=== PATIENT | male | born 1975 | race Caucasian/White ===

== ENCOUNTER → 2018-09-12 | Emergency (ER) | payer SELFPAY ==
[~2018-09-12] MED LIST: ASPIRIN 81 MG CHEWABLE TABLETS ONE; ASPIRIN 81 MG CHEWABLE TABLETS PO ONE; LORazepam 2 MG/ML SDV VIAL ONE; chlordiazePOXIDE HCL 25 MG CAPSULE ONE; chlordiazePOXIDE HCL 25 MG CAPSULE PO ONE
[2018-09-12 12:52] VITALS: PULSE 78; BMI 23.1
--- NOTE | 2018-09-12 12:54 | PDOC ---
Rapid Medical Evaluation Time Seen by Provider: 09/12/18 12:51 Medical Evaluation: 09/12/18 12:51 The patient is a 42 y/o M with no PMH who presents to the ER for chest tightness for 2 hours. He states it is mostly on the L side. Denies difficulty breathing and shortness of breath. (+) smoking hx, also admits to alcohol use Exam: Lungs CTAB, heart RRR, S1S2 present, no MRG Orders: Labs, EKG, CXR Pt to proceed to the ER for further evaluation Discharge Disposition - Diagnosis Chest tightness - Referrals - Patient Instructions - Post Discharge Activity
--- NOTE | 2018-09-12 13:50 | EKG ---
Test Reason : Blood Pressure : / mmHG Vent. Rate : 080 BPM Atrial Rate : 080 BPM P-R Int : 128 ms QRS Dur : 092 ms QT Int : 386 ms P-R-T Axes : 041 058 057 degrees QTc Int : 445 ms POOR DATA QUALITY, INTERPRETATION MAY BE ADVERSELY AFFECTED NORMAL SINUS RHYTHM SEPTAL INFARCT , AGE UNDETERMINED ABNORMAL ECG NO PREVIOUS ECGS AVAILABLE Confirmed by MD ANGÉLICA, PERNELL ([id number]) on 09/12/2018 1:49:37 PM Referred By: Confirmed By:PERNELL LINDSAY MD
[2018-09-12 15:29] LABS: BASO % 0.6 % (0-2.0); EOS % 2.2 % (0-4.5); HEMATOCRIT 50.8 % (35.4-49); HEMOGLOBIN 17.5 GM/dL (11.7-16.9); LYMPH % 12.9 % (8-40); MCH 32.8 pg (25.7-33.7); MCHC 34.5 g/dl (32.0-35.9); MEAN CELL VOLUME 95.1 fl (80-96); MEAN PLT VOLUME 6.9 fl (7.5-11.1); MONO % 7.3 % (3.8-10.2); PLATELET COUNT 231 K/MM3 (134-434); RBC 5.34 M/mm3 (4.00-5.60); RDW 13.1 % (11.9-15.9); WHITE BLOOD COUNT 9.6 K/mm3 (4.0-10.0)
[2018-09-12 15:40] LABS: URINE APPEARANCE CLEAR; URINE BILIRUBIN NEGATIVE (NEGATIVE); URINE COLOR YELLOW; URINE GLUCOSE (UA) NEGATIVE (NEGATIVE); URINE KETONE NEGATIVE (NEGATIVE); URINE LEUK ESTERASE NEGATIVE (NEGATIVE); URINE NITRITE NEGATIVE (NEGATIVE); URINE PROTEIN NEGATIVE (NEGATIVE); URINE UROBILINOGEN 0.2 mg/dL (0.2-1.0)
[2018-09-12 15:42] LABS: INR 0.99 (0.83-1.09); PROTHROMBIN TIME (PATIENT) 11.7 SEC (9.7-13.0)
[2018-09-12 15:58] LABS: ALBUMIN 4.2 g/dl (3.4-5.0); ALK PHOS 86 U/L (45-117); ANION GAP 6 MMOL/L (8-16); BLOOD UREA NITROGEN 6.2 mg/dL (7-18); CALCIUM 9.7 mg/dL (8.5-10.1); CHLORIDE 101 mmol/L (98-107); CO2 30 mmol/L (21-32); CREATININE 0.8 mg/dL (0.55-1.3); GLUCOSE,RANDOM 96 mg/dL (74-106); MAGNESIUM 2.3 mg/dL (1.8-2.4); POTASSIUM 4.2 mmol/L (3.5-5.1); SGOT/AST 53 U/L (15-37); SGPT/ALT 73 U/L (13-61); SODIUM 137 mmol/L (136-145); TOT PROT 8.4 g/dl (6.4-8.2)
--- NOTE | 2018-09-12 16:54 | PDOC ---
Documentation entered by Vinnie Preston SCRIBE, acting as scribe for Adalgisa Hinojosa MD. Adalgisa Hinojosa MD: This documentation has been prepared by the Mohan childers Joel, SCRIBE, under my direction and personally reviewed by me in its entirety. I confirm that the documentation accurately reflects all work, treatment, procedures, and medical decision making performed by me. History of Present Illness - General Chief Complaint: Chest Pain Stated Complaint: CHEST TIGHTNESS Time Seen by Provider: 09/12/18 12:51 History Source: Patient Exam Limitations: No Limitations - History of Present Illness Initial Comments: 09/12/18 15:50 The patient is a 42 year old male with a significant PMH of chronic alcohol use who presents to the emergency department for evaluation of left sided chest tightness. He describes a tightening sensation localized on his left side of his chest with radiation to the left side of the neck and jaw and associated left arm tingling and left cheek warmness. The patient states his chest tightness started at about 11am and lasted about 1 hour before resolving, with associated diaphoresis. He reports experiencing another episode of chest tightness during presentation which lasted for a few minutes but has since resolved. The patient denies any aggravating or alleviating factors. The patient denies palpitations or shortness of breath. He denies prior history of similar symptoms. Family history is pertinent for maternal HTN & diabetes. The patient notes he usually drinks multiple beers everyday starting at around noon for the past few years. The patient denies headache and dizziness. Denies fever, chills, nausea, vomit, diarrhea and constipation. Denies dysuria, frequency, urgency and hematuria. Allergies: NKA Past surgical history: None reported. Social history: Everyday alcohol use. 2 pack/day smoker. No reported drug use. Past History - Past Medical History Allergies/Adverse Reactions: Allergies Allergy/AdvReac Type Severity Reaction Status Date / Time No Known Allergies Allergy Verified 09/12/18 12:52 COPD: No - Suicide/Smoking/Psychosocial Hx Smoking History: Current every day smoker Number of Cigarettes Smoked Daily: 40 Information on smoking cessation initiated: Yes Hx Alcohol Use: Yes (DAILY) Review of Systems - Review of Systems Able to Perform ROS?: Yes Comments:: 09/12/18 15:51 GENERAL/CONSTITUTIONAL: No fever or chills. No weakness. HEAD, EYES, EARS, NOSE AND THROAT: (+) Left face & neck pain. (+) Left face warmness. No change in vision. No ear pain or discharge. No sore throat. CARDIOVASCULAR: (+) Left side chest tightness. No shortness of breath. RESPIRATORY: No cough, wheezing, or hemoptysis. GASTROINTESTINAL: No nausea, vomiting, diarrhea or constipation. GENITOURINARY: No dysuria, frequency, or change in urination. MUSCULOSKELETAL: No joint or muscle swelling or pain. No neck or back pain. SKIN: No rash NEUROLOGIC: (+) Left arm tingling. No headache, vertigo, loss of consciousness, or change in strength. ENDOCRINE: No increased thirst. No abnormal weight change. HEMATOLOGIC/LYMPHATIC: No anemia, easy bleeding, or history of blood clots. ALLERGIC/IMMUNOLOGIC: No hives or skin allergy. *Physical Exam - Vital Signs Last Vital Signs Temp Pulse Resp BP Pulse Ox 97.6 F 78 18 163/102 H 99 09/12/18 12:50 09/12/18 12:50 09/12/18 12:50 09/12/18 12:50 09/12/18 12:50 ED Treatment Course - LABORATORY CBC & Chemistry Diagram: 09/12/18 15:15 09/12/18 15:15 - ADDITIONAL ORDERS Additional order review: Laboratory Results 09/12/18 09/12/18 15:15 15:15 PT with INR 11.70 INR 0.99 Urine Color Yellow Urine Appearance Clear Urine pH 5.0 Ur Specific [place] 1.004 L Urine Protein Negative Urine Glucose (UA) Negative Urine Ketones Negative Urine Blood Negative Urine Nitrite Negative Urine Bilirubin Negative Urine Urobilinogen 0.2 Ur Leukocyte Esterase Negative 09/12/18 15:15 RBC 5.34 MCV 95.1 MCHC 34.5 RDW 13.1 MPV 6.9 L Neutrophils % 77.0 Lymphocytes % 12.9 Monocytes % 7.3 Eosinophils % 2.2 Basophils % 0.6 - Medications Given in the ED: ED Medications Discontinued Medications Generic Name Dose Route Start Last Admin Trade Name Freq PRN Reason Stop Dose Admin Aspirin 324 mg 09/12/18 15:33 09/12/18 16:00 Asa - PO 09/12/18 15:34 324 mg ONCE ONE Administration Chlordiazepoxide HCl 25 mg 09/12/18 16:27 09/12/18 16:39 Librium - PO 09/12/18 16:28 25 mg ONCE ONE Administration Lorazepam 2 mg 09/12/18 15:33 09/12/18 16:00 Ativan Injection - IVPUSH 09/12/18 15:34 2 mg ONCE ONE Administration Medical Decision Making - Medical Decision Making 09/12/18 16:49 Pt presents to the ED complaining of chest pressure that has now resolved. Tremulous with tongue fasiculations and anxiety, suggestive of ETOH withdrawal. Very hypertensive on arrival of the ED. Differential includes muscular chest pain, ETOH withdrawal, less likely ACS. GIven the moderate nature of the pain, dissection is less likely. Will treat with librium and ativan, check labs and reassess. WIll consider discharge home if labs are within normal limits and the withdrawal is improved. *DC/Admit/Observation/Transfer Diagnosis at time of Disposition: Chest tightness - Referrals - Patient Instructions - Post Discharge Activity
[2018-09-12 19:27] VITALS: BP 135/91; TEMP 98.4
--- NOTE | 2018-09-12 20:40 | PDOC ---
*Physical Exam - Vital Signs Last Vital Signs Temp Pulse Resp BP Pulse Ox 98.4 F 78 20 135/91 96 09/12/18 19:26 09/12/18 19:26 09/12/18 19:26 09/12/18 19:26 09/12/18 19:26 ED Treatment Course - LABORATORY CBC & Chemistry Diagram: 09/12/18 15:15 09/12/18 15:15 - ADDITIONAL ORDERS Additional order review: Laboratory Results 09/12/18 09/12/18 09/12/18 15:15 15:15 15:15 PT with INR 11.70 INR 0.99 Sodium 137 Potassium 4.2 Chloride 101 Carbon Dioxide 30 Anion Gap 6 L BUN 6.2 L Creatinine 0.8 Est GFR (CKD-EPI)AfAm 129.51 Est GFR (CKD-EPI)NonAf 111.74 Random Glucose 96 Calcium 9.7 Magnesium 2.3 Total Bilirubin 1.0 AST 53 H ALT 73 H Alkaline Phosphatase 86 Total Protein 8.4 H Albumin 4.2 Urine Color Yellow Urine Appearance Clear Urine pH 5.0 Ur Specific [place] 1.004 L Urine Protein Negative Urine Glucose (UA) Negative Urine Ketones Negative Urine Blood Negative Urine Nitrite Negative Urine Bilirubin Negative Urine Urobilinogen 0.2 Ur Leukocyte Esterase Negative 09/12/18 15:15 RBC 5.34 MCV 95.1 MCHC 34.5 RDW 13.1 MPV 6.9 L Neutrophils % 77.0 Lymphocytes % 12.9 Monocytes % 7.3 Eosinophils % 2.2 Basophils % 0.6 - Medications Given in the ED: ED Medications Discontinued Medications Generic Name Dose Route Start Last Admin Trade Name Lyle PRN Reason Stop Dose Admin Aspirin 324 mg 09/12/18 15:33 09/12/18 16:00 Asa - PO 09/12/18 15:34 324 mg ONCE ONE Administration Chlordiazepoxide HCl 25 mg 09/12/18 16:27 09/12/18 16:39 Librium - PO 09/12/18 16:28 25 mg ONCE ONE Administration Lorazepam 2 mg 09/12/18 15:33 09/12/18 16:00 Ativan Injection - IVPUSH 09/12/18 15:34 2 mg ONCE ONE Administration Medical Decision Making - Medical Decision Making 09/12/18 20:38 I have spoken with [facility] and they have beds available and security will take the patient over. Pt is currently comfortable and in no distress. labs reviewed *DC/Admit/Observation/Transfer Diagnosis at time of Disposition: Alcohol abuse - Discharge Dispostion Disposition: HOME Condition at time of disposition: Stable - Referrals - Patient Instructions Printed Discharge Instructions: DI for Alcohol Abuse Additional Instructions: please go to [facility] detox - Post Discharge Activity
== END | disposition home or self-care (01) ==
LOC: JER 12:30
PROC: 3E033NZ Introduction of Analgesics, Hypnotics, Sedatives into Peripheral Vein, Percutaneous Approach (ICD-10-PCS; principal; 2018-09-12)
DX: F10.10 Alcohol abuse, uncomplicated (principal); F17.210 Nicotine dependence, cigarettes, uncomplicated
CPT/HCPCS: 36415; 71046-TC-FY; 80053; 81003; 82550; 83735; 84484; 85025; 85610; 93005; 93010; 99283-25